=== PATIENT | female | born 1975 | race American Indian/Alaskan Native ===

== ENCOUNTER 2017-07-02 15:22 | Emergency (ER) | payer SELFPAY ==
--- NOTE | 2017-07-02 16:56 | C.PDOC ---
Time Seen by Provider: 07/02/17 15:42 Chief Complaint (Nursing): Allergic Reaction Past Medical History Vital Signs: Last Vital Signs Temp 98.6 F 07/02/17 15:31 Pulse 80 07/02/17 15:31 Resp 20 07/02/17 15:31 BP 104/59 L 07/02/17 15:31 Pulse Ox 98 07/02/17 17:07 - Social History Hx Tobacco Use: Yes (occassional) Hx Alcohol Use: No Hx Substance Use: No - Immunization History Hx Tetanus Toxoid Vaccination: No Hx Influenza Vaccination: No Hx Pneumococcal Vaccination: No ED Course And Treatment O2 Sat by Pulse Oximetry: 98 Disposition Counseled Patient/Family Regarding: Diagnosis, Need For Followup, Rx Given - Disposition Referrals: [facility] [Outside] Disposition: HOME/ ROUTINE Disposition Time: 17:04 Condition: STABLE Additional Instructions: Continue taking benadryl 25 mg by mouth every 6 hours, (makes you sleepy) for the next few days. Take prednisone as prescribed. Follow up in medical clinic in a few days. Return to ER for any worse symptoms. Prescriptions: predniSONE [predniSONE Tab] 2 tab PO DAILY #8 tab Instructions: Contact Dermatitis (ED) Forms: General Discharge Instructions, [facility] (Kiswahili) - Clinical Impression Clinical Impression: Allergic reaction to dye
--- NOTE | 2017-07-02 17:02 | C.PDOC ---
History Of Present Illness 42yo female presents to ED for evaluation of irritation to her hairline as well as swelling to her right side of her face. Patient states she used a hair dye for a touch up a couple days ago. She reports using same brand as before but states this time the product was in a powder form. Patient states since use of the dye, she had severe itching and irritation. She denies any respiratory complaints, no lip, tongue, or mouth swelling. She offers no other medical complaints. Time Seen by Provider: 07/02/17 15:42 Chief Complaint (Nursing): Allergic Reaction History Per: Patient History/Exam Limitations: no limitations Onset/Duration Of Symptoms: Days Current Symptoms Are (Timing): Still Present Possible Cause: Other (hair dye) Associated Symptoms: Swelling, Itching, Redness Additional History Per: Patient Past Medical History Reviewed: Historical Data, Nursing Documentation, Vital Signs Vital Signs: Last Vital Signs Temp 98.6 F 07/02/17 15:31 Pulse 80 07/02/17 15:31 Resp 20 07/02/17 15:31 BP 104/59 L 07/02/17 15:31 Pulse Ox 98 07/02/17 17:05 - Medical History PMH: No Chronic Diseases Surgical History: No Surg Hx Family History: States: No Known Family Hx - Social History Hx Tobacco Use: Yes (occassional) Hx Alcohol Use: No Hx Substance Use: No - Immunization History Hx Tetanus Toxoid Vaccination: No Hx Influenza Vaccination: No Hx Pneumococcal Vaccination: No Review Of Systems Skin: Positive for: Rash (itching red rash to hairline, associated with swelling of right sided face) Physical Exam - Physical Exam Additional Physical Exam Comments: Constitutional: No acute distress. WDWN. Head: Normocephalic. Atraumatic. Eyes: PERRL. EOMI. ENT: Moist mucous membranes. Neck: Supple. Cardiovascular: Regular rate and rhythm. Chest: No tenderness. Respiratory: Clear to auscultation bilaterally. GI: Soft. Nontender. Nondistended. Normoactive bowel sounds. No rebound. No guarding. Back: No CVA and no mid-line tenderness. Musculoskeletal: No tenderness or swelling of extremities. Skin: 3 cm erythematous, slightly bumpy rash noted to skin surrounding hairline. Mild swelling to right side of face. Neurologic: Alert, no focal deficit. ED Course And Treatment O2 Sat by Pulse Oximetry: 98 (RA) Pulse Ox Interpretation: Normal Medical Decision Making Medical Decision Making: Impression: Skin irritation due to exposure to new hair dye Plan: -- Prednisone 60 mg PO Patient stable for discharge home. Advised to follow up with PCP in 1-2 days. Disposition - Disposition Referrals: [facility] at [facility] [Outside] Disposition: HOME/ ROUTINE Condition: STABLE Additional Instructions: Continue taking benadryl 25 mg by mouth every 6 hours, (makes you sleepy) for the next few days. Take prednisone as prescribed. Follow up in medical clinic in a few days. Return to ER for any worse symptoms. Prescriptions: predniSONE [predniSONE Tab] 2 tab PO DAILY #8 tab Instructions: Contact Dermatitis (ED) Forms: General Discharge Instructions, [facility] (Sri Lankan) - Clinical Impression Clinical Impression: Allergic reaction to dye - PA / HYSTER DRIVER / Resident Statement MD/DO has reviewed & agrees with the documentation as recorded. - Scribe Statement The provider has reviewed the documentation as recorded by the Elsie Rivera Provider Attestation: All medical record entries made by the Elsie were at my direction and personally dictated by me. I have reviewed the chart and agree that the record accurately reflects my personal performance of the history, physical exam, medical decision making, and the department course for this patient. I have also personally directed, reviewed, and agree with the discharge instructions and disposition.
[2017-07-02 17:21] VITALS: BP 100/64; PULSE 84; RESP 18; TEMP 97.9; O2SAT 99
== END 2017-07-02 17:24 | disposition home or self-care (01) ==
LOC: C.ER 15:22
DX: L23.5 Allergic contact dermatitis due to other chemical products (principal)